=== PATIENT | male | born 1995 | race Caucasian/White ===

== ENCOUNTER 2017-03-01 22:09 | Emergency (ER) | payer OTHER ==
[~2017-03-01] VITALS: Ht 182.9 cm; Wt 75.4 kg
[2017-03-01 22:15] VITALS: TEMP 36.9; Ht 182.9 cm; Wt 75.4 kg
[2017-03-01] MEDS ORDERED: METHYLPREDNISOLONE 125 MG VIAL IV STA (22:39)
[2017-03-01] MEDS ORDERED: RANITIDINE HCL 50 MG/100 ML D5W IV STA (22:39)
[2017-03-01] MEDS ORDERED: SODIUM CHLORIDE 0.9% 1000ML 1,000 ML IV ONE (22:45)
[2017-03-02] MEDS ORDERED: PRED50TA PO (01:00)
[2017-03-02 01:08] VITALS: BP 115/83; PULSE 60; O2SAT 98
--- NOTE | 2017-03-02 05:04 | EMERGENCY ROOM VISIT NOTE ---
History First contact with patient: 22:31 Chief Complaint: ALLERGIC REACTION Stated Complaint: SWOLLEN LIP Nursing Triage Summary: Pt reports upper lip started swelling 2 hours ago. Denies any new foods or soaps. Denies any difficulty breathing. Pt took Advil and Benadryl 30 minutes ago History of Present Illness The patient is a 21 year old male who presents to the Emergency Room with complaints of worsening swelling of his upper lip that began spontaneously about 2 hours ago. The patient states that he was in the shower when he first noticed symptoms. He states that he did take Benadryl about 30 minutes ago, but this did not significantly improve his symptoms, prompting his presentation. The patient does not have a history of significant allergies in the past. He is not experiencing throat swelling, chest pain, shortness of breath, coughing, abdominal pain, or rash. He denies change in detergents, soaps, or trying to foods. He does not have a history of anaphylaxis in the past. He does not take medication on a regular basis. He rates his current discomfort a 2/10. Review of Systems More than 10 systems were reviewed and otherwise negative with the exception of history of present illness. Past Medical/Surgical History No chronic medical disease Family History No pertinent family history Social History Smoking Status: Former Smoker Current/Historical Medications Scheduled Prednisone (Prednisone), 50 MG PO DAILY Physical Exam Vital Signs Date Time Temp Pulse Resp B/P (MAP) Pulse Ox O2 Delivery O2 Flow Rate FiO2 03/02/17 01:08 60 16 115/83 98 Room Air 03/02/17 00:30 85 16 109/70 97 Room Air 03/01/17 23:40 89 20 122/72 97 Room Air 03/01/17 22:18 97 Room Air 03/01/17 22:15 36.9 72 20 156/84 97 Room Air Physical Exam VITALS: Vitals are noted on the nurse's note and reviewed by myself. Vital signs stable. GENERAL: Well-developed, well-nourished, white male, who is in no acute distress and resting comfortably. Patient is cooperative with the examination. EYES: Pupils equal round and reactive to light and accommodation. Conjunctivae without injection, sclerae without icterus. Extraocular movements intact. NOSE: Patent, turbinates without inflammation or discharge. MOUTH: Mucous membranes moist. Tonsils are not enlarged. Pharynx without erythema, blood, or exudate. Uvula midline. Airway patent. There is obvious swelling to the upper lip NECK: Supple without nuchal rigidity. No lymphadenopathy. No thyromegaly. Cervical spine is nontender. HEART: Regular rate and rhythm without murmurs gallops or rubs. LUNGS: Clear to auscultation bilaterally without wheezes, rales or rhonchi. No retractions or accessory muscle use. ABDOMEN: Positive normal bowel sounds x 4. Soft, nontender, without masses or organomegaly. No guarding or rebound tenderness. MUSCULOSKELETAL: No muscle atrophy, erythema, or edema noted. Full range of motion without joint tenderness in all extremities. NEURO: Patient was alert and oriented to person place and time. CN II through XII grossly intact. SKIN: The skin was without rashes, erythema, edema, or bruising. Capillary reflex less than 2 seconds. Medical Decision & Procedures Medications Administered Medications (Trade) Dose Ordered Sig/Kassi Route Start Time Stop Time Status Last Admin Dose Admin Methylprednisolone Sodium Succinate (Solu-Medrol IV) 125 mg NOW STAT IV 03/01/17 22:39 03/01/17 22:40 DC 03/01/17 22:50 125 MG Ranitidine HCl (zANTac IV) 50 mg NOW STAT IV 03/01/17 22:39 03/01/17 22:40 DC 03/01/17 22:50 50 MG Sodium Chloride 1,000 ml @ 999 mls/hr Q1H1M ONCE IV 03/01/17 22:45 03/01/17 23:45 DC 03/01/17 22:51 999 MLS/HR ED Course Physical exam and history were performed. Nursing notes, EMR, and Medication List were personally reviewed. Patient appears to have an allergic reaction to an unknown source. He does not have signs of anaphylaxis or airway compromise. No gross angioedema. IV access was established and the patient was hydrated with normal saline. He was given Solu-Medrol and Zantac here in the department. Epinephrine was considered , however does not appear necessary at this time. The patient was reevaluated multiple times throughout the course of his stay. He was able to rest comfortably in his ER bed and did have notable improvement of the swelling. He did not develop symptoms of anaphylaxis or difficulty breathing. Overall I suspect the patient is safe for discharge home. He will be given a course of prednisone and instructions to use Benadryl. He is certainly invited back to the ER if he develops any new or worsening symptoms. The patient was pleased with plan of care and voiced understanding. The chart was completed utilizing [employer] Speech Voice Recognition Software. Grammatical errors, random word insertions, pronoun errors, and incomplete sentences are an occasional consequence of this system due to software limitations, ambient noise, and hardware issues. Any formal questions or concerns about the content, text, or information contained within the body of this dictation should be directly addressed to the provider for clarification. . Medical Decision Differential diagnosis: Etiologies such as allergic reaction, anaphylaxis, urticaria, Harris-Jeffery syndrome, toxic epidermal necrolysis, erythema multiforme, cellulitis, as well as others were entertained. Impression Primary Impression: Allergic reaction Departure Information Dispostion Home / Self-Care Condition GOOD Prescriptions Prednisone (Prednisone) 50 Mg Tab 50 MG PO DAILY for 4 Days, #4 TAB Prov: Driss Wick PA-C 03/02/17 Referrals No Doctor, Assigned (PCP) Forms HOME CARE DOCUMENTATION FORM, IMPORTANT VISIT INFORMATION Patient Instructions [facility] Additional Instructions You were seen and evaluated today on an emergency basis only. This is not a substitute for, or an effort to provide, complete comprehensive medical care. It is not possible to recognize and treat all injuries or illnesses in a single emergency department visit. For this reason it is recommended that you followup with [facility] or your primary care physician this week for recheck of your condition. Continue [id number] Benadryl one to 2 tablets every 6 hours as needed. Take prednisone as prescribed. You are welcome to return to the emergency department anytime with new, worsening, or concerning symptoms.
== END 2017-03-02 01:08 | disposition home or self-care (01) ==
LOC: C.EDB 22:12
DX: T78.40XA Allergy, unspecified, initial encounter (principal); X58.XXXA Exposure to other specified factors, initial encounter; Z87.891 Personal history of nicotine dependence